=== PATIENT | female | born 1950 | race Caucasian/White ===

== ENCOUNTER 2019-09-17 07:23 | Day surgery (SDC) | payer OTHER, MEDICARE, SELFPAY ==
[~2019-09-17] VITALS: Ht 157.5 cm; Wt 65.8 kg
[2019-09-17] MEDS ORDERED: SIMETHICONE 40 MG/0.6 ML ML ONE (07:54)
[2019-09-17] MEDS ORDERED: SODIUM PHOSPHATE,MONO-DIBASIC 133 ML ENEMA RC ONE (08:30)
[2019-09-17] MEDS: MIDAZOLAM HCL 5 MG/5 ML VIAL ONE ×4 (08:55→09:15)
[2019-09-17] MEDS: fentaNYL CITRATE/PF 100 MCG/2 ML AMP ONE ×3 (08:55→09:15)
[2019-09-17 10:53] VITALS: BP_SYST 129
== END 2019-09-17 10:20 | disposition home or self-care (01) ==
LOC: SMU 07:23 → SDS 07:23
PROVIDERS: ATTEND Surgery
DX: Z12.11 Encounter for screening for malignant neoplasm of colon (principal); K57.30 Diverticulosis of large intestine without perforation or abscess without bleeding; Z86.010 Personal history of colon polyps; Z11.59 Encounter for screening for other viral diseases
CPT/HCPCS: 44388; 99152; 99153; G0378; J2250; J3010; U0003; 45378